=== PATIENT | male | born 1985 | race Caucasian/White ===

== ENCOUNTER 2016-10-28 12:04 | Emergency (ER) | payer MEDICAID, OTHER ==
[2016-10-28 12:04] VITALS: BMI 31.0
[2016-10-28 12:11] VITALS: RESP 18; TEMP 97.3
--- NOTE | 2016-10-28 12:58 | C.PDOC ---
History Of Present Illness 31 year old patient, with a past medical history of depression and anxiety, presents to the ED complaining of right shoulder muscle spasms for the past week. Patient states the pain got worse 4 days ago. The pain is exacerbated by taking a deep breath and lifting weights. He took Advil this morning with mild relief. Patient denies fever, chest pain, shortness of breath, numbness, weakness, or headache. Time Seen by Provider: 10/28/16 12:25 Chief Complaint (Nursing): Upper Extremity Problem/Injury History Per: Patient History/Exam Limitations: no limitations Onset/Duration Of Symptoms: Days (1 week), Worse Since (4 days ago) Current Symptoms Are (Timing): Still Present Quality: "Pain" Severity: Moderate Pain Scale Rating Of: 4 Exacerbating Factor(s): Other (deep breath) Recent travel outside of the [place]: No Past Medical History Reviewed: Historical Data, Nursing Documentation, Vital Signs Vital Signs: Last Vital Signs Temp 97.3 F L 10/28/16 12:09 Pulse 72 10/28/16 13:08 Resp 18 10/28/16 13:08 BP 154/82 H 10/28/16 13:08 Pulse Ox 97 10/28/16 13:11 - Medical History PMH: Anxiety, Depression, TIA - [facility] Procedures ETHMOIDECTOMY (10/17/14) INTRANASAL ANTROTOMY (10/17/14) SEPTOPLASTY NEC (10/17/14) TURBINECTOMY NEC (10/17/14) Family History: States: Unknown Family Hx - Social History Hx Alcohol Use: Yes Hx Substance Use: No - Immunization History Hx Tetanus Toxoid Vaccination: No Hx Influenza Vaccination: No Hx Pneumococcal Vaccination: No Review Of Systems Except As Marked, All Systems Reviewed And Found Negative. Constitutional: Negative for: Fever Cardiovascular: Negative for: Chest Pain Respiratory: Negative for: Shortness of Breath Musculoskeletal: Positive for: Shoulder Pain (right), Back Pain (right upper) Neurological: Negative for: Weakness, Numbness, Headache Physical Exam - Physical Exam Appears: Non-toxic, No Acute Distress Skin: Warm, Dry Head: Atraumatic, Normacephalic Eye(s): bilateral: Normal Inspection, EOMI Neck: Normal ROM, No Midline Cervical Tenderness, No Paracervical Tenderness, No Step Off Deformity, Supple Chest: Symmetrical Cardiovascular: Rhythm Regular, No Murmur Respiratory: Normal Breath Sounds, No Accessory Muscle Use, No Wheezing Back: Normal Inspection, No CVA Tenderness, No Vertebral Tenderness, Muscle Spasm (to right upper trapezius), No Paraspinal Tenderness, Other (normal ROM to right shoulder) Extremity: Normal ROM, No Deformity, No Swelling Pulses: Right Radial: Normal Neurological/Psych: Oriented x3, Normal Speech Gait: Steady ED Course And Treatment O2 Sat by Pulse Oximetry: 97 (RA) Pulse Ox Interpretation: Normal Medical Decision Making Medical Decision Making: Impression: 31 year old male with muscle spasm Plan: * Flexeril * Reassess and disposition Progress: Upon reevaluatio patient reports pain is improving. He is in no acute distress. Patient stable for discharge. Recommend ibuprofen and flexeril for few days and to follow up with ortho if pain persists Disposition Counseled Patient/Family Regarding: Diagnosis, Need For Followup, Rx Given - Disposition Referrals: Mary Maguire [Primary Care Provider] - Disposition: HOME/ ROUTINE Disposition Time: 12:58 Condition: IMPROVED Additional Instructions: Your prescriptions were sent to [facility] pharmacy Take motrin with food to not upset stomach Take flexeril every 8 hours as needed for pain Prescriptions: Cyclobenzaprine [Cyclobenzaprine HCl] 10 mg PO TID #21 tab Ibuprofen [Motrin] 600 mg PO Q8 #30 tab Instructions: Muscle Spasm (ED) - POA Present On Arrival: None - Clinical Impression Clinical Impression: Muscle spasm, Upper back pain - PA / BANQUET ATTENDANT / Resident Statement MD/DO has reviewed & agrees with the documentation as recorded. - Scribe Statement The provider has reviewed the documentation as recorded by the Scribe Mildred Silva All medical record entries made by the Scribe were at my direction and personally dictated by me. I have reviewed the chart and agree that the record accurately reflects my personal performance of the history, physical exam, medical decision making, and the department course for this patient. I have also personally directed, reviewed, and agree with the discharge instructions and disposition.
[2016-10-28 13:08] VITALS: BP 154/82; PULSE 72
[2016-10-28 13:10] VITALS: O2SAT 97
== END 2016-10-28 13:10 | disposition home or self-care (01) ==
LOC: SUPCPDRO 12:04 → C.ER 12:04
DX: M62.838 Other muscle spasm (principal); M54.6 Pain in thoracic spine